=== PATIENT | female | born 1935 | race Hispanic/Latino ===

== ENCOUNTER → 2017-10-06 | Outpatient (CLI) | payer MEDICARE | END | disposition home or self-care (01) | LOC: SHCH 15:37 | PROVIDERS: ATTEND Internal Medicine Cardiovascular Disease | DX: I87.2 Venous insufficiency (chronic) (peripheral) (principal); I73.9 Peripheral vascular disease, unspecified; L97.529 Non-pressure chronic ulcer of other part of left foot with unspecified severity | CPT/HCPCS: 93925; 93970 ==

== ENCOUNTER 2018-09-14 16:38 | Inpatient (IN) | payer MEDICARE ==
[~2018-09-14] VITALS: Ht 167.6 cm; Wt 97.3 kg
[2018-09-14 18:01] LABS: BASOPHILS % (AUTO) 0.8 % (0.0-5.0); EOSINOPHILS % (AUTO) 1.2 % (0.0-8.0); HEMATOCRIT 41.8 % (36-48); LYMPHOCYTES % (AUTO) 21.3 % (21.0-51.0); MEAN CORPUSCULAR HEMOGLOBIN 33.4 pg (27.0-33.0); MEAN CORPUSCULAR HGB CONC 33.4 g/dL (32.0-36.0); MEAN CORPUSCULAR VOLUME 99.9 fL (79-99); MONOCYTES % (AUTO) 12.5 % (3.0-13.0); NEUTROPHILS % (AUTO) 64.2 % (40.0-77.0); NUCLEATED RED BLOOD CELLS 0.1 % (0.0-0.19); PLATELET COUNT (AUTO) 152 K/uL (130-400); RED BLOOD CELL COUNT(AUTO) 4.19 MIL/uL (4.00-5.50); RED CELL DISTRIBUTION WIDTH 14.2 % (11.0-15.5); WHITE BLOOD COUNT (AUTO) 6.5 K/uL (4.8-10.8)
[2018-09-14 18:13] LABS: CARBON DIOXIDE 29 mmol/L (21-32); CHLORIDE 100 mmol/L (101-111); CREATININE 1.1 mg/dL (0.5-1.5); GLOMERULAR FILTR. RATE CALC 50 mL/min (>60); GLUCOSE,RANDOM 147 mg/dL (70-105); POTASSIUM 4.2 mmol/L (3.5-5.1); SODIUM SERUM 137 mmol/L (136-145); UREA NITROGEN, BLOOD 18 mg/dL (7-18)
[2018-09-14 18:15] LABS: INR 2.96 (0.85-1.15); PARTIAL THROMBOPLASTIN TIME 46.2 SEC (26.3-35.5); PROTHROMBIN TIME 30.4 SEC (9.6-11.6)
[2018-09-14 18:24] LABS: ALANINE AMINOTRANSFERASE 12 U/L (12-78); ALBUMIN 3.5 g/dL (3.5-5.0); ASPARTATE AMINOTRANSFERASE 17 U/L (10-37); BILIRUBIN,TOTAL 0.6 mg/dL (0.2-1.0); CREATINE KINASE, TOTAL 66 U/L (21-232); MYOGLOBIN 58 ng/mL (10-92); TROPONIN I < 0.04 ng/mL (0.00-0.06)
[2018-09-14 18:28] LABS: BILIRUBIN,URINE Negative (NEGATIVE); COLOR,URINE Yellow (YELLOW); GLUCOSE, URINE (UA) Negative (NEGATIVE); KETONES,URINE Negative (NEGATIVE); LEUKOCYTE ESTERASE ,URINE Negative (NEGATIVE); NITRATE,URINE Negative (NEGATIVE); OCCULT BLOOD,URINE Small (NEGATIVE); PH,URINE 6.5 (5.0-8.0); PROTEIN,URINE Negative (NEGATIVE)
[2018-09-14 18:48] LABS: APPEARANCE,URINE SLIGHTLY CLOUDY (CLEAR)
[2018-09-14 18:50] LABS: BACTERIA,URINE Rare /HPF (None Seen); SQUAMOUS EPITHELIAL CELL,UR Rare /HPF (0-2); WBC,URINE 0-1 /HPF (0-1)
[2018-09-14] MEDS ORDERED: VANCOMYCIN 1.5 GM in SODIUM CHLORIDE 0.9% 250 ML IV ONE (20:00)
[2018-09-14] MEDS ORDERED: ONDANSETRON HCL 4 MG/2 ML VIAL IV PRN (20:00)
[2018-09-14] MEDS: CLINDAMYCIN 600 MG/D5% WATER 50 ML IV SCH (20:00)
[2018-09-14] MEDS ORDERED: VANCOMYCIN PROTOCOL PER PHARMACY IV PRN (20:00)
[2018-09-14] MEDS ORDERED: MORPHINE SULFATE 2 MG/ML 1ML SYG IV PRN (20:00)
[2018-09-14] MEDS: SODIUM CHLORIDE 0.9% 1000ML 1,000 ML IV SCH (20:00)
[2018-09-14] MEDS: INSULIN HUMULIN R 100 UNIT/ML 3ML SQ SCH (21:00)
[2018-09-14] MEDS ORDERED: INSU100V3 SQ ×3 (23:48)
[2018-09-14] MEDS ORDERED: DIGO125T87 PO (23:48)
[2018-09-14] MEDS ORDERED: BROM2.5T3 PO (23:48)
[2018-09-14] MEDS ORDERED: METO100T14 PO (23:48)
[2018-09-14] MEDS ORDERED: LISI2.5T2 PO (23:48)
[2018-09-14] MEDS ORDERED: FURO20TA4 PO (23:48)
[2018-09-14] MEDS ORDERED: PRAV20TA4 PO (23:48)
[2018-09-14] MEDS ORDERED: CHOL200012 PO (23:48)
[2018-09-14] MEDS ORDERED: CALC600T12 PO (23:48)
[2018-09-14] MEDS ORDERED: WARF4TAB72 PO (23:48)
[2018-09-14] MEDS ORDERED: GABA-531 PO (23:48)
[2018-09-14] MEDS ORDERED: OMEG-112 PO (23:48)
[2018-09-14] MEDS ORDERED: POTA10TA14 PO (23:48)
[2018-09-14] MEDS ORDERED: LUBI24CA2 PO (23:48)
[2018-09-14] MEDS ORDERED: NPH,100V SQ ×2 (23:48)
[2018-09-14] MEDS ORDERED: ASPI-555 PO (23:48)
[2018-09-14 23:58] VITALS: BP 138/66
[2018-09-15 04:44] VITALS: BP 115/51
[2018-09-15 04:48] LABS: BASOPHILS % (AUTO) 0.5 % (0.0-5.0); EOSINOPHILS % (AUTO) 1.6 % (0.0-8.0); HEMATOCRIT 38.4 % (36-48); LYMPHOCYTES % (AUTO) 31.8 % (21.0-51.0); MEAN CORPUSCULAR HEMOGLOBIN 33.3 pg (27.0-33.0); MEAN CORPUSCULAR HGB CONC 33.5 g/dL (32.0-36.0); MEAN CORPUSCULAR VOLUME 99.5 fL (79-99); MONOCYTES % (AUTO) 13.2 % (3.0-13.0); NEUTROPHILS % (AUTO) 52.9 % (40.0-77.0); PLATELET COUNT (AUTO) 158 K/uL (130-400); RED BLOOD CELL COUNT(AUTO) 3.86 MIL/uL (4.00-5.50); RED CELL DISTRIBUTION WIDTH 14.2 % (11.0-15.5); WHITE BLOOD COUNT (AUTO) 5.1 K/uL (4.8-10.8)
[2018-09-15 05:12] LABS: CREATININE 0.8 mg/dL (0.5-1.5); POTASSIUM 3.7 mmol/L (3.5-5.1)
[2018-09-15] MEDS: CLINDAMYCIN 600 MG/D5% WATER 50 ML IV SCH ×3 (05:45→22:30)
[2018-09-15] MEDS: SODIUM CHLORIDE 0.9% 1000ML 1,000 ML IV SCH ×2 (05:46→17:25)
[2018-09-15] MEDS: INSULIN HUMULIN R 100 UNIT/ML 3ML SQ SCH ×3 (06:43→22:51)
[2018-09-15 08:00] VITALS: BP 114/64
[2018-09-15] MEDS: POTASSIUM CHLORIDE 10 MEQ/TAB.SA PO SCH (09:00)
[2018-09-15] MEDS: CHOLECALCIFEROL 2000 UNIT PO SCH (09:00)
[2018-09-15] MEDS: LISINOPRIL 2.5 MG TABLET PO SCH (09:00)
[2018-09-15] MEDS: METOPROLOL TARTRATE 50 MG TAB PO SCH ×2 (09:19→22:30)
[2018-09-15] MEDS: GABAPENTIN 300 MG CAPSULE PO SCH ×3 (09:20→22:30)
[2018-09-15] MEDS: FISH OIL 1000 MG/CAP PO SCH (09:20)
[2018-09-15] MEDS: FUROSEMIDE 20 MG TABLET PO SCH (09:20)
[2018-09-15] MEDS: ASPIRIN 81 MG EC TAB PO SCH (09:20)
[2018-09-15] MEDS: BROMOCRIPTINE MESYLATE 2.5 MG TABLET PO SCH (09:21)
[2018-09-15] MEDS: LUBIPROSTONE 24 MCG CAP PO SCH ×2 (09:21→22:30)
[2018-09-15] MEDS: CALCIUM 600 + VITAMIN D 400 TABLET PO SCH (09:21)
[2018-09-15] MEDS: PANTOPRAZOLE SODIUM 40 MG TABLET.DR PO SCH (09:21)
[2018-09-15] MEDS: VANCOMYCIN 500MG+NS 100 ML IV SCH ×2 (09:29→22:30)
[2018-09-15] MEDS: ENOXAPARIN SODIUM 40 MG/0.4 ML SYRINGE SQ SCH (09:44)
[2018-09-15 12:00] VITALS: BP 114/55
--- NOTE | 2018-09-15 12:00 | NUR ---
DYSPHAGIA EVAL COMPLETE. -S/S OF ASPIRATION. RECOMMEND REGULAR, THIN LIQUID DIET; PILLS WHOLE WITH LIQUIDS. PATIENT INFORMATION: Pt IS AN 83 Y.O. FEMALE REFERRED FOR A BEDSIDE DYSPHAGIA EVALUATION SECONDARY TO HISTORY OF CVA. Pt COOPERATIVE DURING THE EVALUATION. Pt HARD OF HEARING REQUIRING HIGH VOLUME WHEN PROVIDED WITH INSTRUCTION. Pt CURRENTLY ADMITTED SECONDARY TO PVD, CELLULITIS RLE AND INFECTED 2ND AND THIRD METATARSAL. Pt HAS A PAST MEDICAL HISTORY SIGNIFICANT FOR PVD, DM, HISTORY OF BREAST CANCER, RECENTLY FINISHED 5 AND A HALF WEEKS OF RADIATION DUE TO BRAIN TUMOR, HYSTERECTOMY, LYMPH NODE DISSECTION, CVA (MORE THAN 10 YEARS AGO). EVALUATION: SWALLOW FUNCTION AND EFFICIENCY WITHIN FUNCTIONAL LIMITS. ORAL MOTOR STRENGTH, COORDINATION, AND ROM WITHIN FUNCTIONAL LIMITS. LARYNGEAL ELEVATION/EXCURSION STRONG WITH TIMELY PHARYNGEAL RESPONSE. NO OVERT SIGNS OR SYMPTOMS OF ASPIRATION PRESENT AT BEDSIDE. VOCAL QUALITY CLEAR WITH NO THROAT CLEAR OR COUGH RESPONSE PRESENT. RECOMMENDATIONS: 1. REGULAR TEXTURE, THIN LIQUID DIET; PILLS WHOLE WITH LIQUIDS. 2. COMPENSATORY STRATEGIES (PROPHYLAXIS): *SEATED AT 90 DEGREE ANGLE G-CODES SWALLOWING: [id number] Addendum: 09/15/18 at 1438 by [facility] Amended: Links added.
[2018-09-15] MEDS ORDERED: INSULIN HUMULIN R 100 UNIT/ML 3ML ONE (12:11)
--- NOTE | 2018-09-15 14:30 | NUR ---
DR. BHARATHI KABA HERE TO SEE PATIENT. ORDERS PLACED. STATED HE PLANS NO PROCEDURES AT THIS TIME UNTIL PATIENT IS EVALUATED BY CARDIOLOGY AND OBTAINS ARTERIAL DOPPLER OF RLE RESULTS.
[2018-09-15] MEDS ORDERED: DIGOXIN 125 MCG TABLET PO SCH (16:00)
[2018-09-15] MEDS: WARFARIN SODIUM 2 MG TAB PO SCH ×2 (16:00→18:28)
--- NOTE | 2018-09-15 16:00 | NUR ---
THOR PINTO PA FOR CARDIOLOGY HERE TO SEE PATIENT. NO ORDERS AT THIS TIME. THOR PINTO THEY WILL WAIT FOR ARTERIAL DOPPLER OF RLE RESULTS.
--- NOTE | 2018-09-15 16:06 | NUR ---
Nutrition intervention: Nutrition notification as trigger. Pt admitted for PVD, Cellulitis, infected 2nd/3rd toe currently on CCD 75gm, heart healthy diet with 100% intake. As per pt's daughter no nutrition concerns at this time with n/v/d, chewing or swallowing difficulties. LBM 09/15. Alb 3.5. BMI 33.9. Recommendations: Continue current diet therapy. Protein supplementation, PROMOD 30ml BID Consult RD as nutrition concerns arise. Addendum: 09/15/18 at [address] Amended: Links added.
--- NOTE | 2018-09-15 17:00 | NUR ---
CM - IA WITH FAMILY AT BEDSIDE- PT CONFUSED, MALTESE SPEAKING W/ BELARUSIAN SPEAKING RELATIVES; LIVE W SPOUSE, HAS WKR AMBER BSC, HAS HH FOR [employer], HAS STAIRS BUT '[facility]VERS GOES OUT SIDE' PT AND FAMILYU WANTING PLACEMENT. CM TO FOLLOW NEEDE Addendum: 09/15/18 at 2026 by GREGG DONG RN CM Amended: Links added.
--- NOTE | 2018-09-15 17:00 | NUR ---
WARFARIN PATIENT REFUSED WARFARIN 4MG PO AND REPLIED "IN THE ER I WAS TOLD MY INR WAS 2.96. MY HEART DOCTOR TOLD ME I NEED TO BE BETWEEN A 2 AND 3. AND I THINK IT WAS TOO HIGH SO I DONT WANT TO TAKE WARFARIN TODAY. PAGED DR. GONCALVES TO REPORT THIS AND MD PLACED ORDERS. I TOLD PATIENT AND FAMILY DR. GONCALVES RECOMMENDATIONS AND PATIENT AGREED TO TAKE WARFARIN.
[2018-09-15 18:23] VITALS: BP 110/52
[2018-09-15] MEDS: SIMVASTATIN 20 MG TABLET PO SCH (22:30)
[2018-09-16 00:23] VITALS: BP 109/54
[2018-09-16 04:45] LABS: BASOPHILS % (AUTO) 0.5 % (0.0-5.0); EOSINOPHILS % (AUTO) 1.6 % (0.0-8.0); HEMATOCRIT 36.6 % (36-48); LYMPHOCYTES % (AUTO) 29.3 % (21.0-51.0); MEAN CORPUSCULAR HEMOGLOBIN 33.8 pg (27.0-33.0); MEAN CORPUSCULAR VOLUME 99.6 fL (79-99); NEUTROPHILS % (AUTO) 55.6 % (40.0-77.0); PLATELET COUNT (AUTO) 154 K/uL (130-400); RED BLOOD CELL COUNT(AUTO) 3.68 MIL/uL (4.00-5.50); RED CELL DISTRIBUTION WIDTH 14.4 % (11.0-15.5); WHITE BLOOD COUNT (AUTO) 4.9 K/uL (4.8-10.8)
[2018-09-16] MEDS: CLINDAMYCIN 600 MG/D5% WATER 50 ML IV SCH ×3 (04:47→21:31)
[2018-09-16] MEDS: SODIUM CHLORIDE 0.9% 1000ML 1,000 ML IV SCH ×3 (04:48→23:00)
[2018-09-16 04:52] LABS: CREATININE 0.8 mg/dL (0.5-1.5); POTASSIUM 3.9 mmol/L (3.5-5.1)
[2018-09-16 04:55] LABS: INR 2.56 (0.85-1.15); PROTHROMBIN TIME 26.4 SEC (9.6-11.6)
[2018-09-16 06:00] VITALS: BP 112/55
[2018-09-16] MEDS: INSULIN HUMULIN R 100 UNIT/ML 3ML SQ SCH ×4 (07:30→23:02)
[2018-09-16 08:00] VITALS: BP 124/61
[2018-09-16] MEDS: CHOLECALCIFEROL 2000 UNIT PO SCH (09:00)
[2018-09-16] MEDS: CALCIUM 600 + VITAMIN D 400 TABLET PO SCH (09:38)
[2018-09-16] MEDS: PANTOPRAZOLE SODIUM 40 MG TABLET.DR PO SCH (09:38)
[2018-09-16] MEDS: ASPIRIN 81 MG EC TAB PO SCH (09:38)
[2018-09-16] MEDS: FISH OIL 1000 MG/CAP PO SCH (09:38)
[2018-09-16] MEDS: FUROSEMIDE 20 MG TABLET PO SCH (09:38)
[2018-09-16] MEDS: LISINOPRIL 2.5 MG TABLET PO SCH (09:39)
[2018-09-16] MEDS: POTASSIUM CHLORIDE 10 MEQ/TAB.SA PO SCH (09:39)
[2018-09-16] MEDS: VANCOMYCIN 500MG+NS 100 ML IV SCH (09:40)
[2018-09-16] MEDS: ENOXAPARIN SODIUM 40 MG/0.4 ML SYRINGE SQ SCH (09:40)
[2018-09-16] MEDS: GABAPENTIN 300 MG CAPSULE PO SCH ×3 (09:40→21:31)
[2018-09-16] MEDS: METOPROLOL TARTRATE 50 MG TAB PO SCH ×2 (09:40→21:31)
[2018-09-16] MEDS: LUBIPROSTONE 24 MCG CAP PO SCH ×2 (09:42→21:31)
[2018-09-16] MEDS: BROMOCRIPTINE MESYLATE 2.5 MG TABLET PO SCH (09:42)
[2018-09-16 12:00] VITALS: BP 117/69
[2018-09-16 16:00] VITALS: BP 117/62
--- NOTE | 2018-09-16 16:26 | NUR ---
Nutrition notification for warfarin diet education: Pt alone in room at time of RD visit. Multiple attempts to provide diet education were made by RD. Nurse has been asked to notify RD when family is present. RD to continue attempts to provide diet education.
[2018-09-16] MEDS: DIGOXIN 125 MCG TABLET PO SCH (17:11)
[2018-09-16] MEDS: WARFARIN SODIUM 2 MG TAB PO SCH (17:12)
--- NOTE | 2018-09-16 19:45 | NUR ---
WOUND DRESSING CHANGED DRESSING TO RIGHT 2ND AND 3RD TOE CHANGED ORDERED BY DR. GARVIN. PT TOLERATED DRESSING CHANGE WELL. WILL CONTINUE TO MONITOR PT CLOSELY.
[2018-09-16 20:00] VITALS: BP 119/57
[2018-09-16] MEDS ORDERED: VANCOMYCIN 1GM+NS 250ML 250 ML IV ONE (21:00)
[2018-09-16] MEDS: SIMVASTATIN 20 MG TABLET PO SCH (21:31)
[2018-09-17] VITALS: BP 106/47
[2018-09-17 04:00] VITALS: BP 120/77
[2018-09-17 04:28] LABS: BASOPHILS % (AUTO) 0.6 % (0.0-5.0); EOSINOPHILS % (AUTO) 2.9 % (0.0-8.0); LYMPHOCYTES % (AUTO) 27.6 % (21.0-51.0); MEAN CORPUSCULAR HEMOGLOBIN 33.3 pg (27.0-33.0); MEAN CORPUSCULAR HGB CONC 33.3 g/dL (32.0-36.0); MEAN CORPUSCULAR VOLUME 99.8 fL (79-99); MONOCYTES % (AUTO) 14.3 % (3.0-13.0); NEUTROPHILS % (AUTO) 54.6 % (40.0-77.0); PLATELET COUNT (AUTO) 154 K/uL (130-400); RED BLOOD CELL COUNT(AUTO) 3.61 MIL/uL (4.00-5.50); RED CELL DISTRIBUTION WIDTH 14.3 % (11.0-15.5)
[2018-09-17 04:36] LABS: CREATININE 0.8 mg/dL (0.5-1.5)
[2018-09-17] MEDS: CLINDAMYCIN 600 MG/D5% WATER 50 ML IV SCH ×3 (05:53→21:22)
[2018-09-17] MEDS: VANCOMYCIN 500MG+NS 100ML 100 ML IV SCH ×3 (05:54→21:38)
[2018-09-17] MEDS: INSULIN HUMULIN R 100 UNIT/ML 3ML SQ SCH ×4 (05:54→22:06)
[2018-09-17 08:00] VITALS: BP 119/71
[2018-09-17] MEDS: FUROSEMIDE 20 MG TABLET PO SCH (08:42)
[2018-09-17] MEDS: CALCIUM 600 + VITAMIN D 400 TABLET PO SCH (08:42)
[2018-09-17] MEDS: FISH OIL 1000 MG/CAP PO SCH (08:42)
[2018-09-17] MEDS: GABAPENTIN 300 MG CAPSULE PO SCH ×3 (08:42→21:22)
[2018-09-17] MEDS: ASPIRIN 81 MG EC TAB PO SCH (08:42)
[2018-09-17] MEDS: PANTOPRAZOLE SODIUM 40 MG TABLET.DR PO SCH (08:43)
[2018-09-17] MEDS: METOPROLOL TARTRATE 50 MG TAB PO SCH ×2 (08:43→21:22)
[2018-09-17] MEDS: ENOXAPARIN SODIUM 40 MG/0.4 ML SYRINGE SQ SCH (08:44)
[2018-09-17] MEDS: CHOLECALCIFEROL 2000 UNIT PO SCH (08:45)
[2018-09-17] MEDS: BROMOCRIPTINE MESYLATE 2.5 MG TABLET PO SCH (08:51)
[2018-09-17] MEDS: LUBIPROSTONE 24 MCG CAP PO SCH ×2 (08:51→21:22)
[2018-09-17] MEDS: LISINOPRIL 2.5 MG TABLET PO SCH (08:51)
[2018-09-17] MEDS: POTASSIUM CHLORIDE 10 MEQ/TAB.SA PO SCH (09:03)
[2018-09-17 12:00] VITALS: BP 131/62
[2018-09-17] MEDS: ARTIFICAL TEARS SOL 15 ML OU PRN (12:19)
[2018-09-17] MEDS: SODIUM CHLORIDE 0.9% 1000ML 1,000 ML IV SCH (12:20)
--- NOTE | 2018-09-17 12:50 | NUR ---
ntr f/u; Pt tolerating diet well w/ 50% consumption. pt tolerating promod BID well 2' need for increased pro related to skin breakdown. No gi complaints offered. RDN to cont to monitor ntr status. RDN to f/u. RDN avail for future ntr questions/concerns. Addendum: 09/17/18 at [address] Amended: Links added.
[2018-09-17 16:00] VITALS: BP 123/71
[2018-09-17] MEDS: WARFARIN SODIUM 2 MG TAB PO SCH (17:45)
[2018-09-17 20:00] VITALS: BP 132/61
[2018-09-17] MEDS: SIMVASTATIN 20 MG TABLET PO SCH (21:22)
[2018-09-18] VITALS: BP 111/52
[2018-09-18 04:00] VITALS: BP 112/56
[2018-09-18] MEDS: CLINDAMYCIN 600 MG/D5% WATER 50 ML IV SCH (05:10)
[2018-09-18] MEDS: VANCOMYCIN 500MG+NS 100ML 100 ML IV SCH (05:13)
[2018-09-18] MEDS: INSULIN HUMULIN R 100 UNIT/ML 3ML SQ SCH ×4 (05:54→22:10)
[2018-09-18 06:56] LABS: HEMATOCRIT 34.7 % (36-48); MEAN CORPUSCULAR HEMOGLOBIN 33.9 pg (27.0-33.0); MEAN CORPUSCULAR HGB CONC 33.9 g/dL (32.0-36.0); MEAN CORPUSCULAR VOLUME 99.9 fL (79-99); PLATELET COUNT (AUTO) 183 K/uL (130-400); RED BLOOD CELL COUNT(AUTO) 3.48 MIL/uL (4.00-5.50); RED CELL DISTRIBUTION WIDTH 14.2 % (11.0-15.5); WHITE BLOOD COUNT (AUTO) 5.5 K/uL (4.8-10.8)
[2018-09-18 07:06] LABS: CREATININE 0.7 mg/dL (0.5-1.5); POTASSIUM 3.7 mmol/L (3.5-5.1)
[2018-09-18 07:15] LABS: INR 2.55 (0.85-1.15); PROTHROMBIN TIME 26.3 SEC (9.6-11.6)
[2018-09-18 07:30] VITALS: BP 123/59
[2018-09-18] MEDS: CHOLECALCIFEROL 2000 UNIT PO SCH (09:00)
[2018-09-18] MEDS: METOPROLOL TARTRATE 50 MG TAB PO SCH ×2 (09:34→22:02)
[2018-09-18] MEDS: LISINOPRIL 2.5 MG TABLET PO SCH (09:34)
[2018-09-18] MEDS: PANTOPRAZOLE SODIUM 40 MG TABLET.DR PO SCH (09:35)
[2018-09-18] MEDS: FISH OIL 1000 MG/CAP PO SCH (09:35)
[2018-09-18] MEDS: CALCIUM 600 + VITAMIN D 400 TABLET PO SCH (09:35)
[2018-09-18] MEDS: BROMOCRIPTINE MESYLATE 2.5 MG TABLET PO SCH (09:35)
[2018-09-18] MEDS: ASPIRIN 81 MG EC TAB PO SCH (09:35)
[2018-09-18] MEDS: LUBIPROSTONE 24 MCG CAP PO SCH ×2 (09:35→22:02)
[2018-09-18] MEDS: GABAPENTIN 300 MG CAPSULE PO SCH ×3 (09:35→22:02)
[2018-09-18] MEDS: POTASSIUM CHLORIDE 10 MEQ/TAB.SA PO SCH (09:37)
[2018-09-18] MEDS: FUROSEMIDE 20 MG TABLET PO SCH (09:42)
[2018-09-18] MEDS: ARTIFICAL TEARS SOL 15 ML OU PRN (09:52)
[2018-09-18 11:30] VITALS: BP 125/63
[2018-09-18] MEDS: LEVOFLOXACIN 500 MG/D5W 100 ML 100 ML IV SCH (11:30)
[2018-09-18] MEDS ORDERED: GADODIAMIDE 10 MMOL/20 ML ML IV ONE (14:32)
[2018-09-18 15:30] VITALS: BP 134/76
[2018-09-18] MEDS: DIGOXIN 125 MCG TABLET PO SCH (17:13)
[2018-09-18] MEDS: WARFARIN SODIUM 2 MG TAB PO SCH (17:16)
[2018-09-18 21:45] VITALS: BP 133/71
[2018-09-18] MEDS: SIMVASTATIN 20 MG TABLET PO SCH (22:02)
[2018-09-19] VITALS (7 sets, daily range): BP systolic 107–126; BP diastolic 46–64
[2018-09-19 04:56] LABS: HEMATOCRIT 34.8 % (36-48); MEAN CORPUSCULAR HEMOGLOBIN 33.8 pg (27.0-33.0); MEAN CORPUSCULAR VOLUME 99.6 fL (79-99); PLATELET COUNT (AUTO) 169 K/uL (130-400); RED BLOOD CELL COUNT(AUTO) 3.49 MIL/uL (4.00-5.50); RED CELL DISTRIBUTION WIDTH 14.2 % (11.0-15.5); WHITE BLOOD COUNT (AUTO) 6.7 K/uL (4.8-10.8)
[2018-09-19 05:06] LABS: INR 2.53 (0.85-1.15); PROTHROMBIN TIME 26.1 SEC (9.6-11.6)
[2018-09-19 05:09] LABS: CREATININE 0.9 mg/dL (0.5-1.5); POTASSIUM 3.7 mmol/L (3.5-5.1)
[2018-09-19] MEDS: INSULIN HUMULIN R 100 UNIT/ML 3ML SQ SCH ×4 (08:17→21:39)
[2018-09-19] MEDS: CHOLECALCIFEROL 2000 UNIT PO SCH (09:00)
[2018-09-19] MEDS: FISH OIL 1000 MG/CAP PO SCH (09:22)
[2018-09-19] MEDS: FUROSEMIDE 20 MG TABLET PO SCH (09:22)
[2018-09-19] MEDS: CALCIUM 600 + VITAMIN D 400 TABLET PO SCH (09:22)
[2018-09-19] MEDS: ASPIRIN 81 MG EC TAB PO SCH (09:22)
[2018-09-19] MEDS: LUBIPROSTONE 24 MCG CAP PO SCH ×2 (09:22→21:29)
[2018-09-19] MEDS: METOPROLOL TARTRATE 50 MG TAB PO SCH ×2 (09:22→21:30)
[2018-09-19] MEDS: GABAPENTIN 300 MG CAPSULE PO SCH ×3 (09:23→21:30)
[2018-09-19] MEDS: POTASSIUM CHLORIDE 10 MEQ/TAB.SA PO SCH (09:23)
[2018-09-19] MEDS: PANTOPRAZOLE SODIUM 40 MG TABLET.DR PO SCH (09:23)
[2018-09-19] MEDS: LEVOFLOXACIN 500 MG/D5W 100 ML 100 ML IV SCH (09:30)
[2018-09-19] MEDS: LISINOPRIL 2.5 MG TABLET PO SCH (09:30)
[2018-09-19] MEDS: BROMOCRIPTINE MESYLATE 2.5 MG TABLET PO SCH (09:52)
--- NOTE | 2018-09-19 14:25 | NUR ---
CM Note: [facility] pending acceptance CM met with pt discussed rec for temp rehab, pt agreeable, BOBO signed for [facility]. Faxed clinicals, order, and pasrr. Spoke to [facility] will come eval pt. Pt pending acceptance. Primary nurse aware. CM to cont to follow up.
[2018-09-19] MEDS ORDERED: INSULIN GLARGINE 100 UNITS/ML 10 ML VIAL SQ ONE (15:00)
[2018-09-19] MEDS: WARFARIN SODIUM 2 MG TAB PO SCH (17:11)
--- NOTE | 2018-09-19 17:18 | NUR ---
MELISSA Note: [facility] acceptance Spoke to [facility]. Pt has acceptance, safe to transfer via [employer] transport van. primary nurse aware. CM to cont to follow up.
[2018-09-19] MEDS: SIMVASTATIN 20 MG TABLET PO SCH (21:31)
--- NOTE | 2018-09-19 22:27 | NUR ---
NOTE PATIENT REPORTS FEELING SOME ABDOMINAL DISTENSION AND DISCOMFORT. SAYS SHE WOULD LIKE A LAXATIVE TO HELP HER HAVE BM. NOTICED ON HER EMAR THAT SHE TAKE AMITIZA, BUT NO OTHER MEDICATIONS FOR STOOLS. CONTACTED HOSPITALIST GHASSAN MCRAE AND NOTIFIED HIM. ORDERS RECEIVED AND ENTERED IN COMPUTER FOR LACTULOSE. NOTIFIED PATIENT. PATIENT REQUESTED TO NOT BE WAKEN UP IF ASLEEP. TOLD HER I WOULD GIVE HER THE MEDICINE TONIGHT AND IF NOT IN THE MORNING WHEN AWAKE.
[2018-09-19] MEDS ORDERED: LACTULOSE 20 GM/30 ML UDCUP PO PRN (22:30)
[2018-09-20] MEDS: LACTULOSE 20 GM/30 ML UDCUP PO SCH ×2 (00:15→06:02)
[2018-09-20 03:52] VITALS: BP 124/69
[2018-09-20 04:42] LABS: HEMATOCRIT 33.4 % (36-48); MEAN CORPUSCULAR HGB CONC 34.2 g/dL (32.0-36.0); MEAN CORPUSCULAR VOLUME 99.6 fL (79-99); PLATELET COUNT (AUTO) 172 K/uL (130-400); RED BLOOD CELL COUNT(AUTO) 3.36 MIL/uL (4.00-5.50); RED CELL DISTRIBUTION WIDTH 14.3 % (11.0-15.5); WHITE BLOOD COUNT (AUTO) 6.9 K/uL (4.8-10.8)
[2018-09-20 04:49] LABS: INR 2.3 (0.85-1.15); PROTHROMBIN TIME 23.8 SEC (9.6-11.6)
[2018-09-20 04:54] LABS: CREATININE 0.8 mg/dL (0.5-1.5); POTASSIUM 3.6 mmol/L (3.5-5.1)
[2018-09-20] MEDS: INSULIN HUMULIN R 100 UNIT/ML 3ML SQ SCH ×3 (06:02→17:22)
[2018-09-20 08:00] VITALS: BP 146/57
[2018-09-20] MEDS ORDERED: CADEXOMER IODINE 40 GM GEL TP SCH (09:00)
[2018-09-20] MEDS: CHOLECALCIFEROL 2000 UNIT PO SCH (09:00)
[2018-09-20] MEDS ORDERED: LEVO500T89 PO (10:30)
[2018-09-20] MEDS: LUBIPROSTONE 24 MCG CAP PO SCH (10:49)
[2018-09-20] MEDS: FISH OIL 1000 MG/CAP PO SCH (10:49)
[2018-09-20] MEDS: BROMOCRIPTINE MESYLATE 2.5 MG TABLET PO SCH (10:49)
[2018-09-20] MEDS: CALCIUM 600 + VITAMIN D 400 TABLET PO SCH (10:49)
[2018-09-20] MEDS: METOPROLOL TARTRATE 50 MG TAB PO SCH (10:49)
[2018-09-20] MEDS: PANTOPRAZOLE SODIUM 40 MG TABLET.DR PO SCH (10:50)
[2018-09-20] MEDS: FUROSEMIDE 20 MG TABLET PO SCH (10:50)
[2018-09-20] MEDS: GABAPENTIN 300 MG CAPSULE PO SCH ×2 (10:50→14:26)
[2018-09-20] MEDS: ASPIRIN 81 MG EC TAB PO SCH (10:50)
[2018-09-20] MEDS: POTASSIUM CHLORIDE 10 MEQ/TAB.SA PO SCH (10:53)
[2018-09-20] MEDS: LEVOFLOXACIN 500 MG/D5W 100 ML 100 ML IV SCH (11:08)
[2018-09-20] MEDS: LISINOPRIL 2.5 MG TABLET PO SCH (11:09)
[2018-09-20 11:53] VITALS: BP 131/81
--- NOTE | 2018-09-20 15:11 | NUR ---
REPORT GIVEN TO KATHRINE RUBIN FROM [facility] RE; APPOINTMENTS, AND PLAN OF CARE. WOUND CARE, ABTS. DAILY PT/INR.
--- NOTE | 2018-09-20 15:12 | NUR ---
PENDING [facility]
[2018-09-20 16:00] VITALS: BP 132/87
[2018-09-20] MEDS: DIGOXIN 125 MCG TABLET PO SCH (17:50)
[2018-09-20] MEDS: WARFARIN SODIUM 2 MG TAB PO SCH (17:52)
--- NOTE | 2018-09-20 18:00 | NUR ---
DISCHARGED TO [facility] VIA BUS, STAFF AT BEDSIDE. EDUCATIONS GIVEN USING TEACH BACK TECHNIQUE RE; NEW MEDS, ANTIBIOTICS TO CONTINUE, S/S TO WATCH FOR AND WHEN TO CALL 911 OR MD. Discharged to [facility] AND CONTINUE WITH ANTIBIOTICS AND WOUND CARE DAILY. Continue home medication as per medication reconciliation, Continue medication as prescribed, Tablet levofloxacin 500 milligrams 1 by mouth daily for 10 days. COMPLETE FULL COURSE OF ANTIBIOTIC TREATMENT TO PREVENT SUPER INFECTIONS. CHECK PT/INR LABS DAILY AT [facility]. THEY WILL CHECK INR TOMORROW ON 09/21/2018. IN AM. Follow-up with PRIMARY DOCTOR DR. OTTO GALLEGOS ON 09/27/18 09:15AM. CALL IF UNABLE ATTEND APPOINMENT AT [phone]. Follow-up cardiology DR. DOWNEY ON 10/06/2018 AT 2:30PM, CALL IF UNABLE TO ATTEND APPOINTMENT PHONE; [phone] Follow-up [employer] manufacturing consultant NEEDED WITH Dr. BHARATHI KABA CALL TO SET UP AN APPOINTMENT AT PHONE: [phone]. Follow-up with oncologist Dr. PEGGY KABA in one to 2 weeks/as indicated CALL TO SET UP AN APPOINTMENT AT PHONE: [phone] IF REDNESS OR DRAINAGE NOTED TO FOOT WHERE INFECTION WAS PRESENT CALL YOUR PRIMARY DOCTOR, OR IF HOT TO TOUCH, SWELLING PAINFUL, OR DRAINAGE NOTED. WOUND CARE WILL BE DONE BY YOUR NURSE AT [facility] DAILY WITH NORMAL SALINE, IODOSORB, GAUZE AND KERLIX DAILY. WASH HANDS BEFORE AND AFTER. IF HAVING CHEST PAIN OR SHORTNESS OF BREATH THAT DOES NOT RESOLVE WITH REST CALL 911.
--- NOTE | 2018-09-20 18:00 | NUR ---
DISCHARGED TO [facility] VIA BUS INSTRUCTIONS GIVEN USING TEACH BACK RE; NEW MEDS, S/S TO WATCH FOR AND WHEN TO CALL 911 OR MD. FOLLOW UP WITH PCP IN 3-5 DAYS, CALL TO SET UP AN APPOINTMENT. FOLLOW UP WITH DR. ROSE IN 1 WEEK. CALL TO SET UP AN APPOINTMENT AT PHONE; [phone]. IF HAVING DIZZINESS, SHORTNESS OF BREATH, CHEST PAIN CALL 911. MAKE SURE TO BUY YOUR PRESCRIPTIONS AT YOUR LOCAL PHARMACY. IV OUT, INTACT, TELE REMOVED. AOX3, DENIES ANY QUESTIONS NO DISTRESS. AT BEDSIDE. Addendum: 09/20/18 at 1902 by KELECHI MOREAU RN RN WRONG PATIENT++++++++++++++++++++
== END 2018-09-20 18:32 | DRG 300 ==
LOC: EDH 16:38 → EDHIP 20:00 → 4CH 23:10
PROVIDERS: ADMIT Internal Medicine; ATTEND Internal Medicine
DX: E11.52 Type 2 diabetes mellitus with diabetic peripheral angiopathy with gangrene (principal); L03.115 Cellulitis of right lower limb; E11.621 Type 2 diabetes mellitus with foot ulcer; E66.9 Obesity, unspecified; L97.519 Non-pressure chronic ulcer of other part of right foot with unspecified severity; L97.509 Non-pressure chronic ulcer of other part of unspecified foot with unspecified severity; I10 Essential (primary) hypertension; E78.5 Hyperlipidemia, unspecified; F03.90 Unspecified dementia, unspecified severity, without behavioral disturbance, psychotic disturbance, mood disturbance, and anxiety; H04.123 Dry eye syndrome of bilateral lacrimal glands; H91.90 Unspecified hearing loss, unspecified ear; B96.1 Klebsiella pneumoniae [K. pneumoniae] as the cause of diseases classified elsewhere; B96.5 Pseudomonas (aeruginosa) (mallei) (pseudomallei) as the cause of diseases classified elsewhere; I48.2 Chronic atrial fibrillation; L97.529 Non-pressure chronic ulcer of other part of left foot with unspecified severity; Z68.34 Body mass index [BMI] 34.0-34.9, adult; I25.2 Old myocardial infarction; Z92.3 Personal history of irradiation; Z79.01 Long term (current) use of anticoagulants; Z90.710 Acquired absence of both cervix and uterus; Z86.73 Personal history of transient ischemic attack (TIA), and cerebral infarction without residual deficits; Z85.3 Personal history of malignant neoplasm of breast; Z82.49 Family history of ischemic heart disease and other diseases of the circulatory system
CPT/HCPCS: 36415; 70553; 71045; 73630; 80048; 80053; 80202; 81001; 82550; 82948; 83605; 83874; 83880; 84146; 84484; 85025; 85027; 85610; 85730; 87040; 87070; 87076; 87077; 87088; 87186; 92610; 93005; 93926; 93971; 97039; A9579; G0378; J1650; J1815; J1956; J3370; J3490; J7030

== ENCOUNTER 2019-01-10 16:51 | Emergency (ER) | payer MEDICARE ==
[~2019-01-10 16:51] MED LIST: ASPI-555 PO; BROM2.5T3 PO; CALC600T12 PO; CHOL200012 PO; DIGO125T87 PO; FURO20TA4 PO; GABA-531 PO; INSU100V3 SQ; LEVO500T89 PO; LISI2.5T2 PO; LUBI24CA2 PO; METO100T14 PO; NPH,100V SQ; OMEG-112 PO; POTA10TA14 PO; PRAV20TA4 PO; WARF4TAB72 PO
[2019-01-10 17:31] LABS: BASOPHILS % (AUTO) 4.3 % (0.0-5.0); EOSINOPHILS % (AUTO) 5.7 % (0.0-8.0); HEMATOCRIT 39.7 % (36-48); LYMPHOCYTES % (AUTO) 25.9 % (21.0-51.0); MEAN CORPUSCULAR HEMOGLOBIN 34.4 pg (27.0-33.0); MEAN CORPUSCULAR HGB CONC 34.6 g/dL (32.0-36.0); MEAN CORPUSCULAR VOLUME 99.4 fL (79-99); MONOCYTES % (AUTO) 9.9 % (3.0-13.0); NEUTROPHILS % (AUTO) 54.2 % (40.0-77.0); NUCLEATED RED BLOOD CELLS 0.1 % (0.0-0.19); PLATELET COUNT (AUTO) 117 K/uL (130-400); RED CELL DISTRIBUTION WIDTH 14.5 % (11.0-15.5); WHITE BLOOD COUNT (AUTO) 5.5 K/uL (4.8-10.8)
[2019-01-10 17:42] LABS: INR 2.4 (0.85-1.15); PARTIAL THROMBOPLASTIN TIME 29.5 SEC (26.3-35.5); PROTHROMBIN TIME 24.8 SEC (9.6-11.6)
[2019-01-10 18:15] LABS: APPEARANCE,URINE Clear (CLEAR); BILIRUBIN,URINE Negative (NEGATIVE); COLOR,URINE Yellow (YELLOW); GLUCOSE, URINE (UA) Negative (NEGATIVE); KETONES,URINE Negative (NEGATIVE); LEUKOCYTE ESTERASE ,URINE Negative (NEGATIVE); NITRATE,URINE Negative (NEGATIVE); OCCULT BLOOD,URINE Negative (NEGATIVE); PROTEIN,URINE Negative (NEGATIVE)
[2019-01-10] MEDS ORDERED: KETOROLAC TROMETHAMINE 15MG/ML ONE (18:28)
[2019-01-10 18:59] LABS: ALBUMIN 3.3 g/dL (3.5-5.0); BILIRUBIN,TOTAL 0.5 mg/dL (0.2-1.0); TOTAL PROTEIN, SERUM 6.9 g/dL (6.0-8.3)
== END 2019-01-10 19:35 | disposition home or self-care (01) ==
LOC: EDH 16:51
DX: M48.56XA Collapsed vertebra, not elsewhere classified, lumbar region, initial encounter for fracture (principal); R10.30 Lower abdominal pain, unspecified; I48.91 Unspecified atrial fibrillation; I48.92 Unspecified atrial flutter; E11.9 Type 2 diabetes mellitus without complications; I25.2 Old myocardial infarction; Z85.3 Personal history of malignant neoplasm of breast; Z90.710 Acquired absence of both cervix and uterus; Z90.49 Acquired absence of other specified parts of digestive tract; Z98.890 Other specified postprocedural states; Z87.891 Personal history of nicotine dependence; W18.2XXA Fall in (into) shower or empty bathtub, initial encounter; Y93.01 Activity, walking, marching and hiking; Y92.89 Other specified places as the place of occurrence of the external cause; Y99.8 Other external cause status
CPT/HCPCS: 36415; 71045; 72131; 72170; 74176; 80053; 81003; 82550; 84484; 85025; 85610; 85730; 93005; 96372; 99285; J1885